=== PATIENT | male | born 1955 | race African-American/Black ===

== ENCOUNTER 2017-03-31 00:36 | Emergency (ER) | payer OTHER ==
[2017-03-31 01:44] LABS: Bilirubin Negative (Negative); Blood, Urine Moderate (Negative); Glucose, Urine (Dipstick) Negative (Negative); Ketone, Urine Negative (Negative); Nitrite Negative (Negative); Protein, Urine (Dipstick) 100 mg/dL (Neg-Trace); Urobilinogen 0.2 mg/dL (0.2-1.0)
[2017-03-31 01:47] LABS: Bacteria/HPF None Seen HPF (None Seen); Hyaline Casts/LPF 0-3 HYALINE CAST LPF (0-3 Hyaline); Squamous Epithelial None Seen HPF (0-3); WBC/HPF None Seen HPF (0-3)
== END 2017-03-31 03:05 | disposition home or self-care (01) ==
LOC: ERS 00:36
DX: R33.9 Retention of urine, unspecified (principal); E78.5 Hyperlipidemia, unspecified; E11.22 Type 2 diabetes mellitus with diabetic chronic kidney disease; N18.6 End stage renal disease; Z79.899 Other long term (current) drug therapy
CPT/HCPCS: 51702; 81003; 81015; 87086

== ENCOUNTER 2017-06-21 10:48 | Observation (INO) | payer OTHER ==
[2017-06-21 11:17] LABS: #Eosinphils 0.1 thou/uL (0.0-0.7); #Monocytes 0.5 thou/uL (0.11-0.59); #Neutrophils 3.1 thou/uL (1.40-6.50); %Eosinophils 1.2 % (0.0-10.0); %Lymphocytes 35.5 % (21.0-51.0); %Monocytes 8.4 % (0.0-10.0); %Neutrophils 54.8 % (42.0-75.0); Mean Corpuscular HGB CONC 31.8 g/dL (32.0-36.0); Mean Corpuscular Hemoglobin 27.8 pg (27.0-31.0); Mean Corpuscular Volume 87.4 fl (80.0-94.0); Mean Platelet Volume 9.7 fL (7.4-10.4); Platelet Count 202 thou/uL (130-400); RBC Distribution Width 14.6 % (11.5-14.5); Red Blood Cell (RBC) Count 4.68 mill/uL (4.70-6.10); White Blood Cell (WBC) Count 5.6 thou/uL (4.8-10.8)
[2017-06-21 11:38] LABS: ALT (SGPT) Less than 7 U/L (8-55); AST (SGOT) 9 U/L (5-34); Albumin 4.5 g/dL (3.4-4.8); Alkaline Phosphatase 46 U/L (40-150); Anion Gap 17 mmol/L (10-20); BUN (Urea Nitrogen) 21 mg/dL (8.4-25.7); Bilirubin, Total 0.7 mg/dL (0.2-1.2); CK (CPK) 65 U/L (30-200); Calc. Creatinine Clearance 0 mL/min (70-130); Carbon Dioxide 26 mmol/L (23-31); Chloride 102 mmol/L (98-107); Estimated GFR-MDRD 9; Globulin 4.3 g/dL (2.4-3.5); Glucose 103 mg/dL (80-115); Lipase 63 U/L (8-78); Potassium 4.2 mmol/L (3.5-5.1); Protein, Total 8.8 g/dL (5.8-8.1); Sodium 141 mmol/L (136-145)
[2017-06-21] MEDS ORDERED: hydrALAZINE 20 MG/ML VIAL ONE (11:38)
[2017-06-21 11:41] LABS: CKMB 0.7 ng/mL (0-6.6); Troponin I 0.033 ng/mL (< 0.028)
--- NOTE | 2017-06-21 12:03 | RAD ---
RADIOGRAPH CHEST 1 VIEW: Date: 06-21-17 Time: 11:17 a.m. HISTORY: 61-year-old male with sudden onset nausea and emesis. Chronic renal failure. COMPARISON: 06-23-16 FINDINGS: There is a right internal jugular dialysis catheter with distal port tips overlying the SVC and the S VC right atrial junction, new since the prior study. Transverse diameter of the cardiac shadow is inc reased, similar to the prior study. There is no pulmonary vascular engorgement or pulmonary edema. No consolidation or pneumothorax. Lateral costophrenic angles are sharp. IMPRESSION: 1. Borderline or mild cardiomegaly without congestive heart failure. 2. Right sided internal jugular double lumen dialysis catheter. 3. No acute pulmonary findings. KAE POS: NOÉ
--- NOTE | 2017-06-21 12:45 | CT ---
CT BRAIN NONCONTRAST: DATE: 06/21/2017 TIME: 12:11 p.m. HISTORY: A 61-year-old male with sudden onset nausea and emesis. COMPARISON: 07/19/2015 FINDINGS: There is an old, depressed left zygomatic arch fracture deformity. There is an old, healed, depresse d right parietal bone fracture deformity. There is no acute calvarial fracture. No gross opacificat ion of the paranasal sinuses superior to the mid maxillary sinus level, or the bilateral tympanomasto id cavities. There is moderate ventriculomegaly of the fourth and third ventricles, and mild to mode rate enlargement of the lateral ventricles. There are severe, confluent chronic ischemic white matte r changes throughout the periventricular, deep, and subcortical white matter. There are multiple old lacunar infarctions in the bilateral thalami and in the internal and external capsules. There is a small, old infarction in the right parietal lobe. There is no acute intraaxial or extraaxial hemorrh age, mass effect, midline shift, or extraaxial fluid collection. The ventriculomegaly has slightly w orsened since the previous CT. No other significant interval change. There is a tiny, old lacunar i nfarction in the left cerebellar hemisphere, new since the previous CT. IMPRESSION: 1. No acute intracranial hemorrhage or mass effect. 2. Mild to moderate ventriculomegaly, somewhat worse compared to 07/19/2015. This is probably due t o interval progression of central parenchymal volume loss, resulting in ex vacuo dilation of the vent ricles. However, a communicating obstructive hydrocephalus is not entirely excluded. 3. Multiple old lacunar infarctions in the internal and external capsules and thalamus bilaterally. 4. Small old infarction in the right parietal lobe. 5. Tiny old lacunar infarction in the left cerebellar hemisphere. 6. Old healed depressed right parietal fracture and old depressed left zygomatic arch fracture. KAE R POS: NOÉ
--- NOTE | 2017-06-21 13:51 | CT ---
CT ABDOMEN AND PELVIS WITHOUT CONTRAST: HISTORY: Abdominal pain. Severe bilateral lower quadrant pain. Nausea and vomiting. TECHNIQUE: Multiple axial tomograms obtained through the abdomen and pelvis without IV enhancement. FINDINGS: The lung bases are clear. The liver, spleen, and pancreas appear unremarkable, considering the limitations of an unenhanced exa m. The stomach and duodenum are unremarkable. The adrenal glands appear normal. The kidneys are unremarkable. No hydronephrosis. No evidence of urinary tract calculus. The urinar y bladder is mildly distended and appears unremarkable. There is prostatic hypertrophy noted, imping ing on the floor of the bladder. Small bowel loops are of normal caliber. The colon is unremarkable. No evidence of diverticulitis. The aorta is of normal caliber. No adenopathy identified. IMPRESSION: No acute abnormality identified. POS: NOÉ
[2017-06-21 16:10] LABS: Lactic Acid 1.2 mmol/L (0.5-2.2)
[2017-06-21 16:17] LABS: Troponin I 0.048 ng/mL (< 0.028)
[2017-06-21 19:13] LABS: Troponin I 0.042 ng/mL (< 0.028)
--- NOTE | 2017-06-21 19:52 | HP ---
DATE OF CONSULTATION: 06/21/2017 CHIEF COMPLAINT: Nausea and vomiting. HISTORY OF PRESENT ILLNESS: This is a 61-year-old -[place] male with known history of end-st age renal disease and no other known comorbidities. The patient is a known patient to Dr. Champion and he had his dialysis yesterday and this morning, he noted he was having some severe nausea associated wi th the projectile vomiting with no associated abdominal pain, no diarrhea, no constipation. He denie s having any recent fever or eating any food from outside. He did not have similar symptoms in the p ast. When he came to the ER, he was seen by ER resident who ordered troponin levels which were mildl y elevated to 0.033 and was trending up to 0.048, but the patient denied having any chest pain or diz ziness. He has no previous history of coronary artery disease, but has a diagnosis of congestive hea rt failure. The patient had an EKG in the ER which was unremarkable. No evidence of any acute ST segment changes were noted. PAST MEDICAL HISTORY: End-stage renal disease, hypertension, and type 2 diabetes mellitus. PAST SURGICAL HISTORY: The patient had appendix removed when he was a kid. SOCIAL HISTORY: Patient is not a nonsmoker. No history of alcohol, no history of illicit drug use. FAMILY HISTORY: His sister recently of unknown cause. She was 2 years older to him. REVIEW OF SYSTEMS: All 12 systems are reviewed with the patient thoroughly and found to be negative at this time. The following complete review of systems was negative, unless otherwise mentioned in t he HPI or below: Constitutional: Weight loss or gain, sense of well-being, ability to conduct usual activities, exercise tolerance. Skin/Breast: Rash, itching, changes in hair growth or loss, nail c hanges, breast lumps, tenderness, swelling, nipple discharge. Eyes: Vision, double vision, tearing, blind spots, pain. ENT/Mouth: Headaches (location, time of onset, duration, precipitating factors) , vertigo, lightheadedness, injury. Vision, double vision, tearing, blind spots, pain, nose bleeding, colds, obstruction, discharge, dental difficulties, gingival bleeding, dentures, neck stiffness, blaine n, tenderness, masses in thyroid or other areas. Cardiovascular: Precordial pain, substernal distre ss, palpitations, syncope, dyspnea on exertion, orthopnea, nocturnal paroxysmal dyspnea, edema, cyano sis, hypertension, heart murmurs, varicosities, phlebitis, claudication. Respiratory: Pain, shortne ss of breath, wheezing, stridor, cough, hemoptysis, fever or night sweats. Gastrointestinal: Poor a ppetite, dysphagia, indigestion, abdominal pain, heartburn, eructation, nausea, vomiting, hematemesis , jaundice, constipation, or diarrhea, abnormal stools (jose-colored, tarry, bloody, greasy, foul sme lling), flatulence, hemorrhoids, recent changes in bowel habits. Genitourinary: Urgency, frequency, dysuria, nocturia, hematuria, polyuria, oliguria, unusual (or change in) color of urine, stones, hes itancy, change in size of stream, dribbling, acute retention or incontinence, libido, potency. Muscu loskeletal: Pain, swelling, redness or heat of muscles or joints, limitation, of motion, muscular we akness, atrophy, cramps. Neurologic/Psychiatric: Convulsions, paralyses, tremor, incoordination, pa rasthesias, difficulties with memory of speech, sensory or motor disturbances, or muscular coordinati on (ataxia, tremor), emotional problems, anxiety, depression, previous psychiatric care, unusual perc eptions, hallucinations. Allergy/Immunologic: Skin rash, anemia, bleeding tendency, polydipsia, polyuria, intolerance to heat or cold. HOME MEDICATIONS: 1. Clonidine 0.5 mg p.o. t.i.d. 2. Lasix 40 mg p.o. b.i.d. 3. Hydralazine 75 mg tablet p.o. t.i.d. 4. Nifedipine 60 mg p.o. daily. PHYSICAL EXAMINATION: VITAL SIGNS: Blood pressures are 110/80, heart rate is 88, respiratory rate is 20. Saturation is 98 % on room air. GENERAL: The patient is moderately built, moderately nourished. He does not appear to be in acute d istress at this time. He is an alert, oriented x3. HEENT: Atraumatic, normocephalic. PERRLA. Extraocular muscles are intact. Oral mucosa pink and mo ist. CARDIOVASCULAR: S1, S2 normal. No murmurs, rubs or gallops. LUNGS: Bilateral air entry was equal. No wheezing, no crackles. ABDOMEN: Soft and nontender. No guarding or rebound tenderness. Bowel sounds normal. MUSCULOSKELETAL: No calf tenderness. No pedal edema, no joint tenderness, no joint swelling. SKIN: No cyanosis, no erythema, no rash, no pallor. CLOUD SOLUTIONS ARCHITECT: Cranial nerve examination II-XII intact. No focal deficits were noted. LABORATORY DATA: WBC 5.6, hemoglobin is 13.0, hematocrit is 40.0, platelets are 202. Sodium is 141, potassium 4.2, chloride is 102, BUN 21, creatinine 7.54. Lactic acid 2.5. His initial troponin 0.0 33. Lipase of 63. IMAGING: CT of the abdomen was negative for any intra-abdominal malignancy. ASSESSMENT AND PLAN: 1. Acute intractable nausea and vomiting. 2. Moderate dehydration. 3. Chronic kidney disease, end-stage renal disease on hemodialysis. 4. Non-ST elevation myocardial infarction. 5. Hypertension. PLAN: 1. Plan is to monitor this patient overnight for observation. The patient came with nausea and vomi ting, but for some reason, the patient had troponin levels checked which showed mild elevation which is pretty common and end-stage renal disease, but we will closely monitor for any EKG changes on the Telemetry. We will continue the patient on aspirin and beta-rohan, and atorvastatin. 2. The patient has intractable nausea and vomiting. We will treat the nausea with Zofran and will s tart the patient on IV fluids and start him on clear liquids as needed. The patient has hypertension which is well controlled currently. We will continue to monitor. 3. The patient has end-stage renal disease. He is on dialysis on Tuesday, Wednesdays, and Tuesday. W e will consult Dr. Champion for hemodialysis, possibly tomorrow and the patient could go home following di alysis. 4. Deep venous thrombosis prophylaxis, sequential compression devices. Dictating physician, Rob Muñiz, spent 70 minutes of this patient.
[2017-06-21] MEDS ORDERED: Nitroglycerin 0.4 MG TAB (25 Tab Bottle) PO PRN (20:07)
[2017-06-21] MEDS ORDERED: Acetaminophen 325 MG TAB PO PRN (20:07)
[2017-06-21] MEDS ORDERED: Senokot 8.6 MG TAB PO PRN (20:07)
[2017-06-21] MEDS ORDERED: Ondansetron HCl/PF 4 MG/2 ML Vial IVP PRN (20:07)
[2017-06-21] MEDS ORDERED: HYDROcodone/Acetaminophen 5/325 mg Tablet PO PRN (20:07)
[2017-06-21] MEDS ORDERED: cloNIDine 0.1 MG TAB PO SCH ×2 (21:00→22:30)
[2017-06-21] MEDS ORDERED: Famotidine/PF 20 mg/2ml Vial SLOW IVP SCH (21:00)
[2017-06-21] MEDS ORDERED: hydrALAZINE 25 MG TAB PO SCH ×2 (21:00→22:30)
[2017-06-21] MEDS ORDERED: cloNIDine 0.1 MG TAB PO PRN (22:15)
[2017-06-21 22:29] VITALS: BMI 26.1
[2017-06-21] MEDS ORDERED: traZODone HCl 50 MG TAB PO SCH (22:30)
[2017-06-21] MEDS ORDERED: NIFEdipine XL 60 MG TAB PO SCH (22:30)
[2017-06-21] MEDS: Carvedilol 3.125 MG TAB PO SCH (22:53)
[2017-06-21] MEDS: Docusate 100 MG CAP PO SCH (22:56)
[2017-06-22 04:50] LABS: #Basophils 0.1 thou/uL (0.0-0.2); #Eosinphils 0.1 thou/uL (0.0-0.7); #Lymphocytes 2.1 thou/uL (1.20-3.40); #Monocytes 0.7 thou/uL (0.11-0.59); #Neutrophils 3.9 thou/uL (1.40-6.50); %Basophils 0.9 % (0.0-1.0); %Eosinophils 1.6 % (0.0-10.0); %Lymphocytes 30.2 % (21.0-51.0); %Neutrophils 57.3 % (42.0-75.0); Hemoglobin 11.8 g/dL (14.0-18.0); Mean Corpuscular Hemoglobin 28.9 pg (27.0-31.0); Mean Corpuscular Volume 87.6 fl (80.0-94.0); Mean Platelet Volume 8.9 fL (7.4-10.4); Platelet Count 176 thou/uL (130-400); RBC Distribution Width 14.6 % (11.5-14.5); White Blood Cell (WBC) Count 6.8 thou/uL (4.8-10.8)
[2017-06-22 05:05] LABS: Anion Gap 15 mmol/L (10-20); BUN (Urea Nitrogen) 31 mg/dL (8.4-25.7); Calc. Creatinine Clearance 10 mL/min (70-130); Calcium 9.6 mg/dL (7.8-10.44); Carbon Dioxide 26 mmol/L (23-31); Cardiac Risk 4.3 (Less than 4.5); Chloride 105 mmol/L (98-107); Cholesterol 134 mg/dl (< 200 Desired); Estimated GFR-MDRD 7; Glucose 100 mg/dL (80-115); HDL Cholesterol 31 mg/dL (>60 Neg Risk); LDL Cholesterol, Calculated 80 mg/dL; Potassium 3.7 mmol/L (3.5-5.1); Sodium 142 mmol/L (136-145); Triglycerides 114 mg/dL (Less than 150)
[2017-06-22 08:17] VITALS: TEMP 98.7
[2017-06-22] MEDS: Docusate 100 MG CAP PO SCH (08:35)
[2017-06-22] MEDS: Carvedilol 3.125 MG TAB PO SCH (08:36)
[2017-06-22] MEDS ORDERED: Aspirin 325 MG TAB PO SCH (09:00)
[2017-06-22] MEDS ORDERED: Furosemide 40 MG TAB PO SCH (09:00)
[2017-06-22] MEDS ORDERED: FLU VACC QS2017-18 36 mo. & older 0.5 ML SYRINGE IM ONE (09:00)
[2017-06-22] MEDS ORDERED: Enoxaparin Sodium 30 MG/0.3 ML SYRINGE SC SCH (09:00)
[2017-06-22] MEDS ORDERED: NIFEdipine XL 60 MG TAB PO SCH ×2 (09:00→21:00)
[2017-06-22 12:13] VITALS: BP 157/71
--- NOTE | 2017-06-22 15:11 | DIS ---
DATE OF ADMISSION: 06/21/2017 DATE OF DISCHARGE: 06/22/2017 ADMITTING DIAGNOSIS: Acute intractable nausea and vomiting. DISCHARGE DIAGNOSIS: Acute intractable nausea and vomiting. SECONDARY DIAGNOSES: 1. Non-ST elevation myocardial infarction. 2. Moderate dehydration. 3. Chronic kidney disease, end-stage renal disease on hemodialysis. 4. Hypertension. HISTORY OF PRESENT ILLNESS AND HOSPITAL COURSE: In brief, this is a 61-year-old -[place] garry izaguirre with known history of end-stage renal disease on hemodialysis and sees Dr. Champion for his dialysis on Tuesday, Tuesday, and Tuesday. He was noted to have some severe nausea associated with projectile vo miting with no associated abdominal pain, no diarrhea, no constipation, no chest pain. He denies hav ing any recent fever or eating any outside food. The patient was seen by an ER resident in the ER an d did troponin levels, which were mildly elevated to 0.033 to 0.048, but denied having any chest pain , no dizziness. As the patient was admitted overnight for observation of his troponins and also for his nausea, he was started on some mild hydration and started on aspirin and beta blockers. Patient' s chest pain was unremarkable. His troponins trended down and he wanted to go home as his insurance do not cover in this hospitalization. The following morning, discussed with his doctor of osteopathy that e patient would have his dialysis at his dialysis center today, so the patient was discharged home in stable condition. He was advised to follow up with his primary care physician to set up possibly a nuclear stress test to rule out his cardiac ischemia. The patient was discharged home with prescribe d oral medications. PHYSICAL EXAMINATION: On the day of discharge: VITAL SIGNS: Blood pressures are 159/73, heart rate is 60, respiratory rate 16, saturation was 98% o n room air. GENERAL: The patient is moderately built, moderately nourished, does not appear to be in acute distr ess. CARDIOVASCULAR: S1, S2 normal. No murmurs, rubs or gallops. LUNGS: Bilateral air entry was equal. No wheezing, no crackles. ABDOMEN: Soft, nontender. No guarding, no rebound tenderness. Bowel sounds normal. MUSCULOSKELETAL: No calf tenderness. No pedal edema. No joint tenderness, no joint swelling. HOME MEDICATIONS: 1. Clonidine 0.1 mg p.o. at bedtime. 2. Hydralazine 25 mg p.o. at bedtime. 3. Nifedipine 60 mg p.o. at bedtime. 4. Trazodone 100 mg p.o. at bedtime. OTHER HOME MEDICATIONS: 1. Aspirin 81 mg daily. 2. Coreg 3.125 mg p.o. b.i.d. 3. Atorvastatin 20 mg p.o. daily. DISCHARGE INSTRUCTIONS: Continue activity as tolerated. Advised to follow up with primary care phys ician for a stress test to rule out cardiac ischemia. Advised to follow up with Nephrology today for his dialysis. Advised renal diet. I have spent 30 minutes with this patient.
[2017-06-22] MEDS ORDERED: hydrALAZINE 25 MG TAB PO SCH (21:00)
[2017-06-22] MEDS ORDERED: traZODone HCl 50 MG TAB PO SCH (21:00)
[2017-06-22] MEDS ORDERED: cloNIDine 0.1 MG TAB PO SCH (21:00)
--- NOTE | 2017-06-22 21:11 | CON ---
DATE OF CONSULTATION: 06/22/2017 CONSULTING PHYSICIAN: Nitza Guzman M.D. REQUESTING PHYSICIAN: Rob Muñiz MD REASON FOR CONSULTATION: The need for maintenance hemodialysis. IMPRESSION: 1. End-stage renal disease, hemodialysis dependent, due for dialysis today. 2. Nausea and vomiting, query cause. 3. Hypertension. PLAN: 1. From all the indication, the patient seems to be stable enough to be able to be discharged to go and undergo hemodialysis as an outpatient. Therefore, will recommend to pursue this approach. 2. Further management will be dependent on the clinical course. HISTORY OF PRESENT ILLNESS: History is that of a 61-year-old gentleman with end-stage renal disease, hemodialysis dependent, who presented here with nausea and vomiting. The patient at this time of e dictation seems to have stabilized; IV needs for maintenance hemodialysis necessitated this consult ation. PAST MEDICAL HISTORY: significant for end-stage renal disease, hypertension, type 2 diabetes. MEDICATIONS: Reviewed as documented on [employer]. SOCIAL HISTORY: Remote tobacco use. No history of alcohol or illicit drug use. FAMILY HISTORY: None significantly related to the presenting illness. REVIEW OF SYSTEMS: As documented in the body of the history, otherwise the other systems were review ed and were found not to be significantly related to the presenting illness. PHYSICAL EXAMINATION: GENERAL: The patient was found not to be in any obvious distress, hemodynamically stable, noted with the following vital signs. VITAL SIGNS: Afebrile with temperature 98.0, pulse 60, respiratory rate 16, O2 sat 98% with blood pr essure 157/71. HEENT: Unremarkable with moist oral mucosa. Neck is supple. No conjunctival injection or icterus. CARDIOVASCULAR SYSTEM: First and second heart sounds were heard. RESPIRATORY SYSTEM: Clear to auscultation. DIGESTIVE SYSTEM: Revealed a benign abdomen with positive bowel sounds. EXTREMITIES: No peripheral edema. SKIN: No new gross rash. LYMPHATICS: No peripheral lymphadenopathy. SUMMARY: A 61-year-old gentleman with end-stage renal disease, hemodialysis dependent, who presented here with nausea and vomiting. Thank you for this consultation. We will follow with you.
--- NOTE | 2017-07-07 15:13 | EKG ---
Test Reason : ER INDICATION Blood Pressure : / mmHG Vent. Rate : 065 BPM Atrial Rate : 065 BPM P-R Int : 162 ms QRS Dur : 090 ms QT Int : 438 ms P-R-T Axes : 044 -11 011 degrees QTc Int : 455 ms Normal sinus rhythm Left ventricular hypertrophy with repolarization abnormality Abnormal ECG Confirmed by REGI NUNO ([id number]), assistant editor LASHAY TURNER ([id number]) on 07/07/2017 3:13:15 PM Referred By: Confirmed By:REGI NUNO
== END 2017-06-22 11:24 | disposition home or self-care (01) ==
LOC: ERS 10:48 → 2SW 18:26
PROVIDERS: ADMIT Family Medicine; ATTEND Family Medicine
DX: R11.2 Nausea with vomiting, unspecified (principal); I21.4 Non-ST elevation (NSTEMI) myocardial infarction; E86.0 Dehydration; E11.22 Type 2 diabetes mellitus with diabetic chronic kidney disease; I12.0 Hypertensive chronic kidney disease with stage 5 chronic kidney disease or end stage renal disease; N18.6 End stage renal disease; Z99.2 Dependence on renal dialysis; Z79.82 Long term (current) use of aspirin; Z79.899 Other long term (current) drug therapy; Z88.1 Allergy status to other antibiotic agents; Z87.891 Personal history of nicotine dependence
CPT/HCPCS: 36415; 70450; 71045; 74176; 80048; 80053; 80061; 82550; 82553; 83605; 83690; 84484; 85025; 90471; 90682; 93005; 93306; 94760; 96372; 96374; 96375; G0008; G0378; G8987-GO-CI; G8988-GO-CI; G8989-GO-CI; J0360; J1650; Q2036; S0028

== ENCOUNTER 2017-09-07 16:47 | Emergency (ER) | payer OTHER ==
[2017-09-07 17:31] LABS: #Eosinphils 0.1 thou/uL (0.0-0.7); #Lymphocytes 1.3 thou/uL (1.20-3.40); #Monocytes 0.4 thou/uL (0.11-0.59); %Basophils 0.4 % (0.0-1.0); %Lymphocytes 14.4 % (21.0-51.0); %Monocytes 4.2 % (0.0-10.0); %Neutrophils 80.1 % (42.0-75.0); Hemoglobin 12.8 g/dL (14.0-18.0); Mean Corpuscular HGB CONC 33.1 g/dL (32.0-36.0); Mean Corpuscular Hemoglobin 29.4 pg (27.0-31.0); Mean Corpuscular Volume 88.9 fl (80.0-94.0); Platelet Count 193 thou/uL (130-400); RBC Distribution Width 14.5 % (11.5-14.5); Red Blood Cell (RBC) Count 4.36 mill/uL (4.70-6.10); White Blood Cell (WBC) Count 8.7 thou/uL (4.8-10.8)
[2017-09-07 17:49] LABS: ALT (SGPT) 7 U/L (8-55); AST (SGOT) 13 U/L (5-34); Albumin 4.8 g/dL (3.4-4.8); Alkaline Phosphatase 40 U/L (40-150); Anion Gap 22 mmol/L (10-20); BUN (Urea Nitrogen) 30 mg/dL (8.4-25.7); Bilirubin, Total 0.8 mg/dL (0.2-1.2); Calc. Creatinine Clearance 0 mL/min (70-130); Calcium 10.1 mg/dL (7.8-10.44); Carbon Dioxide 25 mmol/L (23-31); Chloride 95 mmol/L (98-107); Estimated GFR-MDRD 7; Glucose 108 mg/dL (80-115); Potassium 3.8 mmol/L (3.5-5.1); Protein, Total 9.8 g/dL (5.8-8.1); Sodium 138 mmol/L (136-145)
--- NOTE | 2017-09-07 19:19 | RAD ---
SINGLE VIEW OF THE CHEST: 09/07/17 COMPARISON: 06/21/17 HISTORY: Syncope. FINDINGS: Single view of the chest shows a normal sized cardiomediastinal silhouette. There is no evidence of c onsolidation, mass, or pleural effusion. The bones are unremarkable. A dialysis catheter is unchanged in position. IMPRESSION: No evidence of acute cardiopulmonary disease. POS: C
--- NOTE | 2017-09-07 19:21 | CT ---
CT OF BRAIN PERFORMED WITHOUT CONTRAST ENHANCEMENT: 09/07/17 HISTORY: Syncope. COMPARISON: 06/21/17 study. There is generalized ventricular and sulcal prominence. There is prominent decreased attenuation to t he periventricular white matter which is a stable appearance as compared to the prior examination. Th ere is no signs of intracerebral hemorrhage or extra-axial fluid collections. No mass lesion or mass effect. Old left zygomatic arch fracture is incidentally noted. The mastoid air cells and visualized sinuses are clear. IMPRESSION: Atrophy with chronic white matter change. No acute intracranial process. POS: [facility]
== END 2017-09-07 20:05 | disposition home or self-care (01) ==
LOC: ERS 16:47
DX: E87.8 Other disorders of electrolyte and fluid balance, not elsewhere classified (principal); E11.9 Type 2 diabetes mellitus without complications; I12.0 Hypertensive chronic kidney disease with stage 5 chronic kidney disease or end stage renal disease; N18.6 End stage renal disease; Z99.2 Dependence on renal dialysis; Z79.899 Other long term (current) drug therapy; Z79.82 Long term (current) use of aspirin
CPT/HCPCS: 36415; 70450; 71045; 80053; 85025; 93005